=== PATIENT | male | born 1965 | race Caucasian/White ===

== ENCOUNTER → 2020-05-13 | Outpatient (CLI) | payer OTHER | LOC: HYPER 14:07 | PROVIDERS: ATTEND Emergency Medicine | DX: T81.31XA Disruption of external operation (surgical) wound, not elsewhere classified, initial encounter (principal); E11.43 Type 2 diabetes mellitus with diabetic autonomic (poly)neuropathy; E66.01 Morbid (severe) obesity due to excess calories; R60.0 Localized edema; E11.51 Type 2 diabetes mellitus with diabetic peripheral angiopathy without gangrene; I10 Essential (primary) hypertension; Z68.33 Body mass index [BMI] 33.0-33.9, adult; Z79.82 Long term (current) use of aspirin; Y92.238 Other place in hospital as the place of occurrence of the external cause; Y83.8 Other surgical procedures as the cause of abnormal reaction of the patient, or of later complication, without mention of misadventure at the time of the procedure ==

== ENCOUNTER → 2020-05-20 | Outpatient (CLI) | payer OTHER | LOC: HYPER 15:08 | PROVIDERS: ATTEND Emergency Medicine | DX: T81.31XD Disruption of external operation (surgical) wound, not elsewhere classified, subsequent encounter (principal); E11.43 Type 2 diabetes mellitus with diabetic autonomic (poly)neuropathy; E66.01 Morbid (severe) obesity due to excess calories; R60.0 Localized edema; I10 Essential (primary) hypertension; Z68.33 Body mass index [BMI] 33.0-33.9, adult; Y83.8 Other surgical procedures as the cause of abnormal reaction of the patient, or of later complication, without mention of misadventure at the time of the procedure ==

== ENCOUNTER → 2020-05-27 | Outpatient (CLI) | payer OTHER | LOC: HYPER 13:27 | PROVIDERS: ATTEND Emergency Medicine | DX: T81.31XD Disruption of external operation (surgical) wound, not elsewhere classified, subsequent encounter (principal); E11.43 Type 2 diabetes mellitus with diabetic autonomic (poly)neuropathy; E66.01 Morbid (severe) obesity due to excess calories; R60.0 Localized edema; I10 Essential (primary) hypertension; Z68.33 Body mass index [BMI] 33.0-33.9, adult; Y83.8 Other surgical procedures as the cause of abnormal reaction of the patient, or of later complication, without mention of misadventure at the time of the procedure ==

== ENCOUNTER → 2020-06-03 | Outpatient (CLI) | payer OTHER | LOC: HYPER 10:30 | PROVIDERS: ATTEND Emergency Medicine | DX: T81.31XD Disruption of external operation (surgical) wound, not elsewhere classified, subsequent encounter (principal); E11.43 Type 2 diabetes mellitus with diabetic autonomic (poly)neuropathy; E66.9 Obesity, unspecified; R60.0 Localized edema; I10 Essential (primary) hypertension; Z68.33 Body mass index [BMI] 33.0-33.9, adult; Y83.8 Other surgical procedures as the cause of abnormal reaction of the patient, or of later complication, without mention of misadventure at the time of the procedure ==